=== PATIENT | female | born 1995 | race African-American/Black ===

== ENCOUNTER 2017-10-29 18:50 | Emergency (ER) | payer SELFPAY ==
[~2017-10-29] VITALS: Ht 157.5 cm; Wt 48.5 kg
[2017-10-29 18:58] VITALS: BP 102/61
--- NOTE | 2017-10-29 19:03 | PHYS DOC ---
Adult General Chief Complaint Chief Complaint: FACE PROBLEM HPI HPI Patient is a 21 year old female presents to the emergency department with complaints of nose pain. Patient states prior to arrival she fell forward in her home striking her face on the edge of a glass table. Patient states that she believe she fell because she was hungry and had not eaten today. She has no complaints of headache, blurred vision, double vision, loss of vision, neck pain , chest pain, abdominal pain. Review of Systems Review of Systems Constitutional: Denies fever or chills [] Eyes: Denies change in visual acuity, redness, or eye pain [] HENT: Denies nasal congestion or sore throat, complaining of swelling to the nose [] Respiratory: Denies cough or shortness of breath [] Cardiovascular: No additional information not addressed in HPI [] GI: Denies abdominal pain, nausea, vomiting, bloody stools or diarrhea [] : Denies dysuria or hematuria [] Musculoskeletal: Denies back pain or joint pain [] Integument: Denies rash or skin lesions [] Neurologic: Denies headache, focal weakness or sensory changes [] Endocrine: Denies polyuria or polydipsia [] All other systems were reviewed and found to be within normal limits, except as documented in this note. Current Medications Current Medications Current Medications Medications (Trade) Dose Ordered Sig/Alison Start Time Stop Time Status Last Admin Dose Admin Ibuprofen (Motrin) 600 mg 1X ONCE 10/29/17 19:45 10/29/17 19:46 Allergies Allergies Allergies Coded Allergies Type Severity Reaction Last Updated Verified No Known Drug Allergies 10/29/17 No Physical Exam Physical Exam Constitutional: Well developed, well nourished, no acute distress, non-toxic appearance. [] HENT: Normocephalic, bilateral external ears normal, oropharynx moist, no oral exudates, nose with swelling, abdomen is midline without hematoma. No evidence of epistaxis. Superficial abrasion to the left, lateral eye, not inclusive of the temporal region. [] Eyes: PERRLA, EOMI, conjunctiva normal, no discharge. Right upper eyelid with contusion on the funduscopic exam benign. No hyphema [] Neck: Normal range of motion, no line or paracervical tenderness, supple, no stridor. [] Cardiovascular:Heart rate regular rhythm, no murmur [] Lungs & Thorax: Bilateral breath sounds clear to auscultation [] Neurologic: Alert and oriented X 3, normal motor function, normal sensory function, no focal deficits noted. [] Psychologic: Affect normal, judgement normal, mood normal. [] Current Patient Data Vital Signs Vital Signs Date Time Temp Pulse Resp B/P (MAP) Pulse Ox O2 Delivery O2 Flow Rate FiO2 10/29/17 18:58 98.1 83 18 100 Room Air 98.1 EKG EKG [] Radiology/Procedures Radiology/Procedures [] Course & Med Decision Making Course & Med Decision Making Nasal bone x-rays reviewed, minimally displaced fracture Pertinent Labs and Imaging studies reviewed. (See chart for details) [] Dragon Disclaimer Dragon Disclaimer This electronic medical record was generated, in whole or in part, using a voice recognition dictation system. Departure Departure Impression: Primary Impression: Nasal bone fracture Disposition: 01 HOME, SELF-CARE Condition: STABLE Referrals: LUIS MONTES MD Patient Instructions: Facial Fracture Additional Instructions: Nasal bones have been broken. Ice to affected area. Tylenol ibuprofen over-the- counter as labeled and is indicated for symptom management. Please follow-up with Dr. Montes, call for an appointment Problem Qualifiers Primary Impression: Nasal bone fracture Encounter type: initial encounter Fracture type: closed Qualified Codes: S02.2XXA - Fracture of nasal bones, initial encounter for closed fracture ELIER VILLAREAL APRN Oct 29, 2017 19:03
[2017-10-29] MEDS ORDERED: IBUPROFEN 600 MG TABLET. PO ONE (19:45)
--- NOTE | 2017-10-30 08:31 | RAD ---
Nasal bones, 10/29/2017: History: Fall, pain There is a fracture of the tip of the nasal bones with only slight depression of a small fragment. The anterior-inferior nasal spine is intact. IMPRESSION: Small fracture at the tip of the nasal bones.
== END 2017-10-29 19:45 | disposition home or self-care (01) ==
LOC: ER 18:50
DX: S02.2XXA Fracture of nasal bones, initial encounter for closed fracture (principal); W18.09XA Striking against other object with subsequent fall, initial encounter; Y93.89 Activity, other specified; Y99.8 Other external cause status; Y92.89 Other specified places as the place of occurrence of the external cause
CPT/HCPCS: 70150; 99284